=== PATIENT | female | born 1975 | race Caucasian/White ===

== ENCOUNTER 2021-02-12 13:23 | Emergency (ER) | payer OTHER ==
[~2021-02-12] VITALS: Ht 154.9 cm; Wt 80.7 kg
[~2021-02-12 13:23] MED LIST: ALBUTEROL INHALER
[2021-02-12 13:34] VITALS: BP 116/85
--- NOTE | 2021-02-12 14:07 | NUR ---
PT PROVIDED WITH BLANKET BEDSIDE
--- NOTE | 2021-02-12 14:15 | NUR ---
DR. COOK BEDSIDE EVALUATING PT
--- NOTE | 2021-02-12 14:19 | NUR ---
45 Y/O F BIB SELF FROM HOME, C/O BILATERAL LEG PAIN, BURNING SENSATION STARTED FOR 3 WEEKS. WAS SEEN AT [place] TO R/O DVTS, NEGATIVE. LRQ ABD PAIN FOR 3 DAYS THAT IS NON-RADITING AND STABBING LIKE PAIN. DENIES N/V/D. DENIES SOB, COUGH, CP AND FEVERS. TENDERNESS WITH PALPATION AND LAST BM WAS 02/12/21. SKIN DRY AND INTACT. BREATHING EVEN AND UNLABORED. R/O: APPENDICITIS PMH: GALLSTONES ALLERGY: SHELLFISH (HIVES AND MOUTH SWELLING) MED: CIPROFLOXACIN, NAPROXEN
[2021-02-12] MEDS ORDERED: NACL 0.9% 1,000 ML IV SCH (14:20)
[2021-02-12] MEDS ORDERED: KETOROLAC 30 MG/ML VIAL IVP ONE (14:20)
--- NOTE | 2021-02-12 14:38 | NUR ---
20 GUAGE IV ESTABLISHED IN R HAND. BLOOD WORK COLLECTED AND HANDED TO SENIOR BI DEVELOPER ALONG WITH URINE
[2021-02-12 14:40] LABS: BASOPHILS # (AUTO) 0.1 K/uL (0.00-0.22); BASOPHILS % (AUTO) 0.8 % (0.0-2.0); EOSINOPHILS # (AUTO) 0.1 K/uL (0-0.4); EOSINOPHILS % (AUTO) 1.3 % (0.0-4.0); HEMATOCRIT 40.8 % (36-48); HEMOGLOBIN 13.9 g/dL (12.0-16.0); LYMPHOCYTES # (AUTO) 2.9 K/uL (2.5-16.5); MEAN CORPUSCULAR HEMOGLOBIN 32 pg (27-31); MEAN CORPUSCULAR HGB CONC 34 g/dL (33-37); MEAN CORPUSCULAR VOLUME 95.2 fL (80-94); MONOCYTES # (AUTO) 0.9 K/uL (0.8-1.0); MONOCYTES % (AUTO) 10.8 % (1.7-9.3); NEUTROPHILS # (AUTO) 4.5 K/uL (1.8-7.7); NEUTROPHILS % (AUTO) 53.1 % (42.2-75.2); PLATELET COUNT (AUTO) 468 K/uL (140-450); RED BLOOD CELL COUNT(AUTO) 4.28 MIL/uL (4.20-5.40); RED CELL DISTRIBUTION WIDTH 13.3 % (11.6-13.7); WHITE BLOOD COUNT (AUTO) 8.4 K/uL (4.8-10.8)
[2021-02-12 14:43] LABS: APPEARANCE,URINE CLEAR (CLEAR); BILIRUBIN,URINE NEGATIVE (NEGATIVE); BLOOD, URINE NEGATIVE (NEGATIVE); COLOR,URINE YELLOW (YELLOW); LEUKOCYTE ESTERASE ,URINE TRACE (NEGATIVE); NITRITE, URINE NEGATIVE (NEGATIVE); UGLUCOSE NEGATIVE (NEGATIVE)
[2021-02-12 15:10] LABS: ALBUMIN 3.7 g/dL (3.4-5.0); ANION GAP 15.2 (8-16); CARBON DIOXIDE 24.9 mmol/L (21-32); CREATININE 0.7 mg/dL (0.6-1.3); POTASSIUM 4.1 mmol/L (3.5-5.1); TOTAL BILIRUBIN 0.2 mg/dL (0.0-1.0)
--- NOTE | 2021-02-12 15:12 | NUR ---
PT TAKEN TO CT VIA [facility]
--- NOTE | 2021-02-12 15:30 | NUR ---
pt returned to bed [address] [facility]
[2021-02-12] MEDS ORDERED: ACET-8386 PO (16:06)
[2021-02-12] MEDS ORDERED: IBUP-2213 PO (16:06)
[2021-02-12 16:13] VITALS: BP 107/70
--- NOTE | 2021-02-12 16:14 | NUR ---
Patient discharged with v/s stable. Written and verbal after care instructions given and explained. Patient alert, oriented and verbalized understanding of instructions. Ambulatory with steady gait. All questions addressed prior to discharge. ID band removed. Patient advised to follow up with PMD. Rx of ibuprofen and hydrocodone/acetaminophen given. Patient educated on indication of medication including possible reaction and side effects. Opportunity to ask questions provided and answered.
== END 2021-02-12 16:14 | disposition home or self-care (01) ==
LOC: MED 13:23
DX: R10.9 Unspecified abdominal pain (principal); M79.604 Pain in right leg; M79.605 Pain in left leg; J45.909 Unspecified asthma, uncomplicated; Z91.013 Allergy to seafood
CPT/HCPCS: 36415; 74176; 80053; 81003; 81025; 83690; 85025; 96361; 96374; 99284; J1885; J7030

== ENCOUNTER 2021-03-03 12:50 | Emergency (ER) | payer OTHER ==
[~2021-03-03] VITALS: Ht 157.5 cm; Wt 79.8 kg
[~2021-03-03 12:50] MED LIST changes: +ACET-8386 PO; +IBUP-2213 PO
[2021-03-03 13:03] VITALS: BP 126/78
--- NOTE | 2021-03-03 13:10 | NUR ---
PT AMBULATED TO ROOM 4, GIVEN SPECIMEN CUP FOR URINE COLLECTION.
--- NOTE | 2021-03-03 13:10 | NUR ---
45 Y/O F BIB DAUGHTER IN [place] FROM HOME, SURGERY LAST WEDNESDAY FOR GALLBLADDER REMOVAL, C/O RUQ PAIN WITH INSPIRATION THAT RADIATES TO LOWER BACK. SPOKE WITH BETT[facility], WAS INFORMED TO COME TO ER. PMH: DENIES ALLERGY: SHRIMP (SWELLING AND HIVES) MED: NORCO LAST NIGHT
--- NOTE | 2021-03-03 13:18 | NUR ---
PT AMBULATED TO BATHROOM TO PROVIDE URINE SAMPLE, INSTRUCTED ON HOW TO PROVIDE SAMPLE.
[2021-03-03] MEDS ORDERED: NACL 0.9% 1,000 ML IV ONE (13:20)
[2021-03-03] MEDS ORDERED: ONDANSETRON 4 MG/2 ML VIAL IVP ONE (13:20)
[2021-03-03] MEDS ORDERED: MORPHINE SULFATE 4 MG/ML SYR IVP ONE (13:20)
[2021-03-03 14:04] LABS: BASOPHILS % (AUTO) 0.4 % (0.0-2.0); EOSINOPHILS # (AUTO) 0.1 K/uL (0-0.4); EOSINOPHILS % (AUTO) 1.5 % (0.0-4.0); HEMATOCRIT 42.1 % (36-48); HEMOGLOBIN 14.3 g/dL (12.0-16.0); LYMPHOCYTES # (AUTO) 2.9 K/uL (2.5-16.5); MEAN CORPUSCULAR HEMOGLOBIN 32 pg (27-31); MEAN CORPUSCULAR HGB CONC 34 g/dL (33-37); MEAN CORPUSCULAR VOLUME 94.9 fL (80-94); MONOCYTES # (AUTO) 0.8 K/uL (0.8-1.0); MONOCYTES % (AUTO) 8.5 % (1.7-9.3); NEUTROPHILS # (AUTO) 5.5 K/uL (1.8-7.7); NEUTROPHILS % (AUTO) 58.6 % (42.2-75.2); PLATELET COUNT (AUTO) 279 K/uL (140-450); RED BLOOD CELL COUNT(AUTO) 4.44 MIL/uL (4.20-5.40); RED CELL DISTRIBUTION WIDTH 13.5 % (11.6-13.7); WHITE BLOOD COUNT (AUTO) 9.3 K/uL (4.8-10.8)
[2021-03-03 14:16] LABS: APPEARANCE,URINE SL CLOUDY (CLEAR); BILIRUBIN,URINE NEGATIVE (NEGATIVE); BLOOD, URINE NEGATIVE (NEGATIVE); COLOR,URINE ORANGE (YELLOW); LEUKOCYTE ESTERASE ,URINE NEGATIVE (NEGATIVE); NITRITE, URINE NEGATIVE (NEGATIVE); UGLUCOSE NEGATIVE (NEGATIVE)
[2021-03-03 14:21] LABS: ALBUMIN 3.7 g/dL (3.4-5.0); ANION GAP 13.2 (8-16); CARBON DIOXIDE 28.2 mmol/L (21-32); CREATININE 0.8 mg/dL (0.6-1.3); POTASSIUM 4.4 mmol/L (3.5-5.1); TOTAL BILIRUBIN 0.3 mg/dL (0.0-1.0)
--- NOTE | 2021-03-03 14:51 | NUR ---
PT TAKEN TO RADIOLOGY FOR CT
--- NOTE | 2021-03-03 15:11 | NUR ---
PT RETURNED FROM CT TO BED
--- NOTE | 2021-03-03 16:00 | NUR ---
Patient appears to be resting comfortably in bed. Vital Signs within normal limits. Respirations even and unlabored.
[2021-03-03 17:00] VITALS: BP 124/74
--- NOTE | 2021-03-03 17:00 | NUR ---
Patient discharged with v/s stable. Written and verbal after care instructions given and explained. Patient verbalized understanding. Ambulatory with steady gait. All questions addressed prior to discharge. Advised to follow up with PMD.
== END 2021-03-03 17:00 | disposition home or self-care (01) ==
LOC: MED 12:50
DX: R10.11 Right upper quadrant pain (principal); G89.18 Other acute postprocedural pain; Z90.49 Acquired absence of other specified parts of digestive tract; Z98.890 Other specified postprocedural states; Z79.891 Long term (current) use of opiate analgesic; Z79.1 Long term (current) use of non-steroidal anti-inflammatories (NSAID); Z91.013 Allergy to seafood
CPT/HCPCS: 36415; 74177; 80053; 81003; 81025; 83690; 85025; 96360; 99285; J2270; J2405; J7030; Q9967